=== PATIENT | female | born 1980 | race Caucasian/White ===

== ENCOUNTER 2018-04-09 15:40 | Emergency (ER) | payer OTHER, SELFPAY ==
[2018-04-09 15:43] VITALS: BP 122/86; PULSE 80; RESP 16; TEMP 36.8; O2SAT 100; BMI 27.3
--- NOTE | 2018-04-09 16:40 | ED.HEATRA ---
HPI - Head Injury General Chief complaint: Head Injury Stated complaint: HIT HEAD Time Seen by Provider: 04/09/18 16:40 Source: patient Mode of arrival: ambulatory Limitations: no limitations History of Present Illness HPI Narrative: otherwise healthy 37-year-old female here for evaluation of a head injury that she sustained approximately 6 hr prior to arrival here in the ER. She states that she was bent over getting something out of the freezer when she stood up and hit her head on the freezer door. No loss of consciousness. Has had some nausea but no vomiting. No vision changes. No prior head injuries. No balance issues. Has not tried anything for her symptoms prior to arrival Related Data Previous Rx's Medication Instructions Recorded ondansetron 4 mg PO Q6-8H PRN #7 tab 04/09/18 Allergies Allergy/AdvReac Type Severity Reaction Status Date / Time codeine Allergy Verified 04/09/18 15:43 Review of Systems Constitutional Denies fever(s) and Reports headache(s) Eyes Denies blurry vision, Denies diplopia and Denies loss of vision ENT Ears, Nose, Mouth, and Throat: Denies vertigo, Denies dizziness and Reports headache(s) Cardiovascular Denies chest pain, Denies syncope and Denies dyspnea Respiratory Denies dyspnea Integumentary/Breasts Denies rash Neurologic Denies confusion, Denies vertigo, Denies dizziness, Denies syncope, Reports headache(s), Denies focal weakness and Denies loss of vision Psychiatric Denies confusion Hematologic/Lymphatic Denies easy bleeding and Denies easy bruising PFSH Medical History Healthy adult (Acute) Surgical History No pertinent past surgical history (Acute) Social History marital status: Smoking Status: Never smoker Exam Initial Vital Signs Initial Vital Signs: Vital Signs Temperature 98.2 F 04/09/18 15:43 Pulse Rate 80 04/09/18 15:43 Respiratory Rate 16 04/09/18 15:43 Blood Pressure 122/86 04/09/18 15:43 Pulse Oximetry 100 04/09/18 15:43 Const General: cooperative, healthy appearing, comfortable, well developed, well groomed and No acute distress Orientation: alert, awake and oriented x3 HENMT Head: normal to inspection, No abrasion, contusion ( center top frontal portion of the head inside there might), No laceration, No scalp lesion and scalp tenderness Eyes Pupils: PERRL EOM: EOM intact bilaterally Resp Effort & Inspection: normal respiratory effort Auscultation: clear to auscultation bilaterally Cardio Rate: regular rate Rhythm: regular rhythm Skin Lesions: no lesions Rashes: no rashes Neuro General: alert, awake and oriented x3 Cranial Nerves: CN's II-XI intact bilaterally Cognition: normal cognition Speech: speech normal Motor: muscle tone normal throughout Sensory Exam: no sensory deficits noted Extrem General: normal to inspection and capillary refill normal Psych Appearance: grossly normal and well kempt Course Vital Signs - 8 hr 04/09/18 15:43 Temperature 98.2 F Pulse Rate 80 Respiratory Rate 16 Blood Pressure 122/86 Pulse Oximetry 100 MDM - Head Injury MDM Narrative Medical decision making narrative: patient with a contusion of the center of her head. No lacerations. No breaks in skin. No indication for suturing. No step-offs noted. Will hold on head CT for now. We had a long discussion regarding closed head injuries and concussions. We did discuss symptoms that she could potentially have over the next couple days. We did discuss things that she can do to help with the symptoms. We did discuss things that she are to avoid. She expressed understanding and agreement this plan. She was given return precautions. Discharge Plan Departure Patient Disposition: Home Clinical Impression: Closed head injury, Contusion of scalp, Concussion Instructions: DI for Concussion, Closed Head Injury, DI for Postconcussion Syndrome Activity Restrictions/Additional Instructions: recommend taking Tylenol/ Motrin for any headaches. Call your primary care doctor for a follow-up. Return to the emergency department for any new or worsening symptoms. Prescriptions: New ondansetron 4 mg tablet,disintegrating 4 mg PO Q6-8H PRN (Reason: nausea and vomiting) Qty: 7 RF: 0
--- NOTE | 2018-04-09 16:53 | PC.NURSE ---
No loc, reports feeling fuzzy took two ibuprofen after hitting head but feels like it is wearing off.
== END 2018-04-09 17:28 | disposition home or self-care (01) ==
PROVIDERS: Emergency Provider Emergency Medicine
DX: S00.03XA Contusion of scalp, initial encounter (principal); S06.0X9A Concussion with loss of consciousness of unspecified duration, initial encounter; W22.8XXA Striking against or struck by other objects, initial encounter
CPT/HCPCS: 99283